=== PATIENT | female | born 1990 | race Caucasian/White ===

== ENCOUNTER 2017-09-25 19:28 | Emergency (ER) | payer MEDICAID ==
[2017-09-25] MEDS ORDERED: ONDANSETRON HCL IV 4 MG/2 ML VIAL IVP ONE (20:03)
[2017-09-25] MEDS ORDERED: ACETAMINOPHEN 1,000 MG/100 ML BTL IVPB ONE (20:03)
--- NOTE | 2017-09-25 20:09 | Emergency Department Record ---
History of Present Illness - General Chief Complaint: Headache Migraine Stated Complaint: HEADACHE Time Seen by Provider: 09/25/17 20:02 Source: Patient Mode of Arrival: Ambulatory Limitations: No limitations - History of Present Illness Initial Comments: 27 yo female presents to ED for evaluation of headache and congestion symptoms for the past several days. Patient reports fever of 100 at home 3 days ago, denies neck stiffness symptoms. Patient reports that she is 11 weeks with a history of IDDM, denies cough symptoms. Patient reports that she was seen at [facility] last night for her symptoms and discharged without improvement in her symptoms. Patient denies abdominal pain, nausea, or vaginal bleeding symptoms. MD Complaint: Headache Onset/Timin -: Days(s) Onset Description: Awoke with symptoms Location: Frontal, Retro-orbital, Temporal Severity scale (1-10): 7 Quality: Throbbing Consistency: Constant Improves With: Nothing Worsens With: Other Other Symptoms: Other Treatments Prior to Arrival: Acetaminophen - Related Data Home Medications Medication Instructions Recorded Confirmed Last Taken Insulin Glargine,Hum.rec.anlog 30 unit SQ QPM 09/25/17 09/25/17 Unknown [Lantus] Insulin Glargine,Hum.rec.anlog 35 unit SQ QAM 09/25/17 09/25/17 Unknown [Lantus] Ondansetron [Zofran Odt] 4 mg PO Q8H PRN 09/25/17 09/25/17 Unknown Pnv,Calcium 72/Iron/Folic Acid 1 tab PO DAILY 09/25/17 09/25/17 Unknown [Pnv Plus Multivit Tab] Ranitidine HCl [Zantac] 150 mg PO BID 09/25/17 09/25/17 Unknown Allergies Allergy/AdvReac Type Severity Reaction Status Date / Time ibuprofen [From Motrin] Allergy decreased Verified 02/27/14 22:12 kidney funtion insulin detemir Allergy HIVES Verified 09/25/17 19:44 [From Levemir U-100 Insulin] metoclopramide HCl Allergy aggitation Verified 02/27/14 22:12 [From Reglan] morphine Allergy ITCHING Verified 02/27/14 22:12 Travel Screening - Travel/Exposure Within Last 30 Days Have you traveled within the last 30 days?: No - Travel Symptoms Symptom Screening: None Review of Systems Constitutional: Reports: Fever. Denies: Chills, Malaise, Night sweats Eyes: Denies: Eye discharge, Eye pain ENT: Reports: Congestion. Denies: Ear pain, Epistaxis Respiratory: Denies: Cough, Dyspnea Cardiovascular: Denies: Chest pain, Dyspnea on exertion Endocrine: Denies: Fatigue, Heat or cold intolerance Gastrointestinal: Denies: Abdominal pain, Vomiting Genitourinary: Denies: Incontinence, Retention Musculoskeletal: Denies: Arthralgia, Back pain, Gout, Joint swelling Skin: Denies: Bruising, Change in color Neurological: Reports: Headache. Denies: Abnormal gait, Confusion Psychiatric: Denies: Anxiety Hematological/Lymphatic: Denies: Anemia, Blood Clots Past Medical History - SOCIAL HISTORY Smoking Status: Current every day smoker - RESPIRATORY Hx Respiratory Disorders: No - CARDIOVASCULAR Hx Cardio Disorders: No - NEURO Hx Neuro Disorders: No - GI Hx GI Disorders: Yes Hx Reflux: Yes - Hx Genitourinary Disorders: No - ENDOCRINE Hx Endocrine Disorders: Yes Hx Diabetes: Yes - MUSCULOSKELETAL Hx Musculoskeletal Disorders: No - PSYCH Hx Psych Problems: Yes Comment:: PTSD - HEMATOLOGY/ONCOLOGY Hx Hematology/Oncology Disorders: No Family Medical History Any Significant Family History?: Yes Hx Diabetes: Grandparents Hx Heart Disease: Father *Heart Comment: enlarged heart Physical Exam - General General Appearance: Alert, Oriented x3, Cooperative, Mild distress Limitations: No limitations - Head Head exam: Atraumatic, Normocephalic, Normal inspection Head exam detail: negative: Abrasion, Contusion, Iniguez's sign, General tenderness, Hematoma, Laceration - Eye Eye exam: Normal appearance. negative: Conjunctival injection, Periorbital swelling, Periorbital tenderness, Scleral icterus - ENT Ear exam: negative: Auricular hematoma, Auricular trauma Nasal Exam: negative: Active bleeding, Discharge, Dried blood, Foreign body Mouth exam: negative: Drooling, Laceration, Muffled voice, Tongue elevation - Neck Neck exam: Normal inspection. negative: Meningismus, Tenderness - Respiratory Respiratory exam: Normal lung sounds bilaterally. negative: Rales, Respiratory distress, Rhonchi, Stridor - Cardiovascular Cardiovascular Exam: Regular rate, Normal rhythm, Normal heart sounds - GI/Abdominal GI/Abdominal exam: Soft. negative: Rebound, Rigid, Tenderness - Rectal Rectal exam: Deferred - exam: Deferred - Extremities Extremities exam: Normal inspection. negative: Calf tenderness, Pedal edema, Tenderness - Back Back exam: Denies: CVA tenderness (R), CVA tenderness (L) - Neurological Neurological exam: Alert, Normal gait, Oriented X3 - Psychiatric Psychiatric exam: Normal affect, Normal mood - Skin Skin exam: Normal color. negative: Abrasion Type of lesion: negative: abrasion Course Vital Signs 09/25/17 19:42 Temperature 98.3 F Pulse Rate [ 93 H Pulse Ox Probe] Respiratory 20 Rate Blood Pressure 111/74 [Left Arm] Pulse Ox 98 - Reevaluation(s) Reevaluation #1: 09/25/17 20:45 Labs reviewed and are grossly unremarkable for an acute process. Reevaluation #2: 09/25/17 21:26 Patient reassessed and reports no improvement in her symptoms. Discussed with the patient her allergy to Reglan, reports lip swelling/hives, risk outweighs the benefits in this case. Toradol in contraindicated, and opiates may be unsafe in . Patient reports similar reactions to phenergan and compazine on further discussion. I discussed that if her symptoms are unchanged , transfer to [facility] where her high-risk OB and anesthesia are available should LP be indicated based on her symptoms. I explained the benefit of possible LP and the availability of these consultants as these consultants are not available at [facility] vs. the risks of failure to diagnose meningitis or other acute etiology of her headache symptoms, patient continues to decline transfer. Patient is alert, oriented, and has the capacity to make rational decisions, and has no meningeal signs on examination. Patient continues to decline transfer after review of these risks and benefits. Patient reports that she would like to go home at this time. Medical Decision Making - Lab Data Result diagrams: 09/25/17 20:20 09/25/17 20:20 Disposition Disposition: Other Clinical Impression: URI (upper respiratory infection) Qualifiers: URI type: unspecified URI Qualified Code(s): J06.9 - Acute upper respiratory infection, unspecified Headache Qualifiers: Headache type: unspecified Headache chronicity pattern: acute headache Intractability: intractable Qualified Code(s): R51 - Headache Disposition: Against Medical Advice Condition: (2) Stable Instructions: Acute Headache (ED) Additional Instructions: Return to ED if your symptoms worsen or if you have any concerns. Follow-up with your family doctor/OB in 1-3 days as directed. Forms: Patient Portal Access Time of Disposition: 21:32 Quality - Quality Measures Quality Measures: N/A - Blood Pressure Screening Does Patient Have Any of the Following: No Blood Pressure Classification: Pre-Hypertensive BP Reading Systolic Measurement: 123 Diastolic Measurement: 75 Screening for High Blood Pressure: < Pre-Hypertensive BP, F/U Documented > [ G8950] Pre-Hypertensive Follow-up Interventions: Referral to alternative/primary care provider.
[2017-09-25] MEDS ORDERED: 0.9 % SODIUM CHLORIDE 1000ML 1,000 ML IV SCH (20:15)
[2017-09-25 20:21] LABS: INFLUENZA A NEGATIVE (NEGATIVE); INFLUENZA B NEGATIVE (NEGATIVE)
[2017-09-25 20:26] LABS: BASO % 0.2 % (0-6); GRAN % 73.2 % (47-80); HEMATOCRIT 40.2 % (35.0-47.0); HEMOGLOBIN 13.5 gm/dl (11.6-16.0); LYMPH % 18.5 % (16-45); MEAN CELL VOLUME 88.5 fl (81-97); MEAN CORPUSCULAR HEMOGLOBIN 29.7 pg (27-33); MEAN CORPUSCULAR HGB CONC 33.6 g/dl (32-36); MEAN PLATELET VOLUME 9.2 fl (7.4-10.4); MONO % 7.1 % (0-9); PLATELET COUNT 288 K/uL (130-400); RED BLOOD COUNT 4.54 M/uL (3.80-5.40); RED CELL DISTRIBUTION WIDTH 13.4 % (11.5-14.5); WHITE BLOOD COUNT W/O DIFF 10.5 K/uL (4.2-12.2)
[2017-09-25 20:38] LABS: BLOOD UREA NITROGEN 13 mg/dL (6-20); CREATININE 0.5 mg/dL (0.5-0.9); EST GLOMERULAR FILTRATION RATE > 60 mL/min
[2017-09-25 20:39] LABS: TOTAL PROTEIN 6.8 g/dL (6.6-8.7)
[2017-09-25 20:41] LABS: GLUCOSE,RANDOM 118 mg/dL (74-109)
[2017-09-25 20:44] LABS: ALB/GLOB RATIO 1.3 (1.1-1.8); ALBUMIN 3.8 g/dL (4.0-5.0); ALKALINE PHOSPHATASE 51 U/L (35-104); ALT/SGPT 13 U/L (<33); AST/SGOT 13 U/L (10.0-35.0)
== END 2017-09-25 21:43 | disposition left against medical advice (07) ==
LOC: ER 19:28
DX: O98.511 Other viral diseases complicating pregnancy, first trimester (principal); O99.331 Smoking (tobacco) complicating pregnancy, first trimester; J06.9 Acute upper respiratory infection, unspecified; R51 Headache; E11.9 Type 2 diabetes mellitus without complications; Z79.4 Long term (current) use of insulin; Z3A.11 11 weeks gestation of pregnancy
CPT/HCPCS: 99284 ×2; 96365; 96375; 85025; 80053; 87400; J2405; J7030

== ENCOUNTER 2018-11-24 19:01 | Emergency (ER) | payer MEDICAID ==
--- NOTE | 2018-11-24 19:13 | Emergency Department Record ---
History of Present Illness - General Chief complaint: Dental Stated complaint: DENTAL PAIN Time Seen by Provider: 11/24/18 19:03 Source: Patient Mode of Arrival: Ambulatory Limitations: No limitations - History of Present Illness Initial comments: 28 yo female presents with dental pain after extraction. She had an infected tooth that was extracted a week ago. She is still having pain at the extraction site. No fevers or chills. No choking, trouble swallowing, or voice changes. No facial swelling. No neck pain or swelling. No visible external swelling. She is on day 5 of 7 of Clindamycin. She has a dentist in [place]. MD complaint: Tooth pain -: Days(s) Location: Tooth # (17) Severity: Severe Quality: Aching Consistency: Constant Improves with: None Worsens with: Eating Context- Dental: History of dental caries, Other (extraction) - Related Data Home Medications Medication Instructions Recorded Confirmed Last Taken Clindamycin HCl 150 mg PO QID 11/24/18 11/24/18 11/24/18 Insulin Glargine,Hum.rec.anlog 30 unit SQ BID 11/24/18 11/24/18 11/24/18 [Basaglar Kwikpen U-100] Insulin Lispro [Admelog] 30 unit SQ TID 11/24/18 11/24/18 11/24/18 Previous Rx's Medication Instructions Recorded Ondansetron [Zofran Odt] 4 mg PO Q8H #20 tab.rapdis 11/24/18 Allergies Allergy/AdvReac Type Severity Reaction Status Date / Time ibuprofen [From Motrin] Allergy decreased Verified 02/27/14 22:12 kidney funtion insulin detemir Allergy HIVES Verified 09/25/17 19:44 [From Levemir U-100 Insulin] metoclopramide HCl Allergy aggitation Verified 02/27/14 22:12 [From Reglan] morphine Allergy ITCHING Verified 02/27/14 22:12 metformin AdvReac DIARRHEA Verified 11/24/18 19:15 Review of Systems Constitutional: Denies: Chills, Fever, Malaise, Weakness Eyes: Denies: Eye discharge, Eye pain ENT: Reports: As per HPI, Dental pain. Denies: Congestion, Ear pain, Epistaxis , Throat pain Respiratory: Denies: Cough, Dyspnea Cardiovascular: Denies: Chest pain, Palpitations, Syncope Endocrine: Denies: Fatigue, Polydipsia, Polyuria Gastrointestinal: Denies: Abdominal pain, Diarrhea, Nausea, Vomiting Genitourinary: Denies: Dysuria, Urgency Musculoskeletal: Denies: Arthralgia, Back pain, Joint swelling, Myalgia, Neck pain Skin: Denies: Bruising, Change in color, Rash Neurological: Denies: Headache Psychiatric: Denies: Anxiety Hematological/Lymphatic: Denies: Easy bleeding, Easy bruising Past Medical History - SOCIAL HISTORY Smoking Status: Current every day smoker - RESPIRATORY Hx Respiratory Disorders: No - CARDIOVASCULAR Hx Cardio Disorders: No - NEURO Hx Neuro Disorders: No - GI Hx GI Disorders: No - Hx Genitourinary Disorders: No - ENDOCRINE Hx Endocrine Disorders: Yes Hx Diabetes: Yes - MUSCULOSKELETAL Hx Musculoskeletal Disorders: No - PSYCH Hx Psych Problems: No - HEMATOLOGY/ONCOLOGY Hx Hematology/Oncology Disorders: No Family Medical History Hx Diabetes: Grandparents Hx Heart Disease: Father *Heart Comment: enlarged heart Physical Exam - General General Appearance: Alert, Oriented x3, Cooperative, No acute distress Limitations: No limitations - Head Head exam: Normocephalic, Normal inspection Head exam detail: Other (No facial swelling) - Eye Eye exam: Normal appearance, PERRL. negative: Conjunctival injection, Periorbital swelling, Scleral icterus - ENT ENT exam: Normal exam, Normal external ear exam, TM's normal bilaterally ( normal left TM) Ear exam: Normal external inspection Nasal Exam: Normal inspection Mouth exam: Normal external inspection Teeth exam: Dental tenderness # (17 extraction site), Other (The site appears clean, minimal gum erythema but NO swelling, No pus, no overt signs of infection ). negative: Gingival enlargement Throat exam: Normal inspection - Neck Neck exam: Normal inspection (no swelling, normal symmetric appearance), Full ROM, Other (very soft and supple). negative: Lymphadenopathy, Meningismus, Tenderness, Thyromegaly - Respiratory Respiratory exam: Normal lung sounds bilaterally. negative: Respiratory distress, Rhonchi, Stridor, Wheezes - Cardiovascular Cardiovascular Exam: Regular rate, Normal rhythm, Normal heart sounds - Rectal Rectal exam: Deferred - Neurological Neurological exam: Alert, CN II-XII intact, Oriented X3 - Psychiatric Psychiatric exam: Normal affect, Normal mood. negative: Agitated, Anxious - Skin Skin exam: Dry, Intact, Normal color, Warm Course - Reevaluation(s) Reevaluation #1: The extraction site appears to be healing. There is very mild erythema but overt signs of swelling, abscess, pus, or spreading infection We discussed symptomatic care, reasons to return or be seen if worse an any point until follow up next week with her dentist 11/24/18 19:15 Disposition Disposition: Discharge Clinical Impression: Status post tooth extraction Disposition: Home, Self-Care Condition: (1) Good Instructions: Toothache (ED) Additional Instructions: Call your dentist for the next available follow up appointment Return to the ER for a recheck if worse, any new concerns or questions Take the prescriptions provided as directed Prescriptions: Ondansetron [Zofran Odt] 4 mg PO Q8H #20 tab.rapdis Forms: Patient Portal Access Time of Disposition: 19:18 Quality - Quality Measures Quality Measures: N/A - Blood Pressure Screening Does Patient Have Any of the Following: Active Dx of HTN Blood Pressure Classification: Pre-Hypertensive BP Reading Systolic Measurement: 132 Diastolic Measurement: 76 Screening for High Blood Pressure: Patient Exclusion, Hx of HTN [G9744]
== END 2018-11-24 19:29 | disposition home or self-care (01) ==
LOC: ER 19:01
DX: K08.409 Partial loss of teeth, unspecified cause, unspecified class (principal); I10 Essential (primary) hypertension; F17.210 Nicotine dependence, cigarettes, uncomplicated
CPT/HCPCS: 99282

== ENCOUNTER 2018-12-14 19:38 | Emergency (ER) | payer MEDICAID ==
--- NOTE | 2018-12-14 19:53 | Emergency Department Record ---
History of Present Illness - General Chief complaint: Pain Stated complaint: PAIN IN HANDS AND FEET Time Seen by Provider: 12/14/18 19:50 Source: Patient, Family Mode of Arrival: Ambulatory Limitations: No limitations - History of Present Illness Initial comments: 28 yo female presents with worsening chronic pain in her hands and her feet. She is a diabetic. She has neuropathy. 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 She tried Neurontin but she had too many side effects. She has fairly symmetric pain of the hands and feet. No rash, swelling, redness, paleness. At times she has cramps of her hands and her feet that come in waves. No cough, shortness of breath, chest pain, fever, edema. MD Complaint: Extremity pain -: Month(s) Location: Bilateral, Foot, Hand -: Yes Myalgia Radiation: Distal Quality: Aching Consistency: Constant Improves with: Nothing Worsens with: Weight bearing Associated Symptoms: Denies other symptoms - Related Data Home Medications Medication Instructions Recorded Confirmed Last Taken Insulin Glargine,Hum.rec.anlog 35 unit SQ QPM 12/14/18 12/14/18 Unknown [Basaglar Kwikpen U-100] Allergies Allergy/AdvReac Type Severity Reaction Status Date / Time ibuprofen [From Motrin] Allergy decreased Verified 02/27/14 22:12 kidney funtion insulin detemir Allergy HIVES Verified 09/25/17 19:44 [From Levemir U-100 Insulin] metoclopramide HCl Allergy aggitation Verified 02/27/14 22:12 [From Reglan] morphine Allergy ITCHING Verified 02/27/14 22:12 metformin AdvReac DIARRHEA Verified 11/24/18 19:15 Review of Systems Constitutional: Denies: Chills, Fever, Malaise, Night sweats, Weakness Eyes: Denies: Eye discharge, Eye pain, Photophobia, Vision change ENT: Denies: Congestion, Dental pain, Ear pain, Throat pain Respiratory: Denies: Cough, Dyspnea, Hemoptysis, Stridor, Wheezes Cardiovascular: Denies: Chest pain, Edema, Palpitations, Syncope Endocrine: Denies: Fatigue, Polydipsia, Polyuria Gastrointestinal: Denies: Abdominal pain, Diarrhea, Nausea, Vomiting Genitourinary: Denies: Dysuria, Hematuria Musculoskeletal: Denies: Arthralgia, Back pain, Gout, Joint swelling, Myalgia, Neck pain Skin: Denies: Bruising, Change in color, Lesions, Rash Neurological: Reports: As per HPI, Tingling. Denies: Confusion, Headache Psychiatric: Denies: Anxiety Hematological/Lymphatic: Denies: Blood Clots, Easy bleeding, Easy bruising, Swollen glands Past Medical History - SOCIAL HISTORY Smoking Status: Current every day smoker - RESPIRATORY Hx Respiratory Disorders: No - CARDIOVASCULAR Hx Cardio Disorders: No - NEURO Hx Neuro Disorders: No - GI Hx GI Disorders: No - Hx Genitourinary Disorders: No - ENDOCRINE Hx Endocrine Disorders: Yes Hx Diabetes: Yes - MUSCULOSKELETAL Hx Musculoskeletal Disorders: No - PSYCH Hx Psych Problems: No - HEMATOLOGY/ONCOLOGY Hx Hematology/Oncology Disorders: No Family Medical History Hx Diabetes: Grandparents Hx Heart Disease: Father *Heart Comment: enlarged heart Physical Exam - General General Appearance: Alert, Oriented x3, Cooperative, No acute distress Limitations: No limitations - Head Head exam: Atraumatic, Normocephalic, Normal inspection Head exam detail: negative: Abrasion, Contusion - Eye Eye exam: Normal appearance, PERRL. negative: Conjunctival injection, Scleral icterus - ENT ENT exam: Normal exam, Mucous membranes moist, Normal orophraynx Ear exam: Normal external inspection Nasal Exam: Normal inspection Mouth exam: Normal external inspection Teeth exam: Normal inspection Throat exam: Normal inspection - Neck Neck exam: Normal inspection. negative: Lymphadenopathy, Meningismus, Tenderness, Thyromegaly - Respiratory Respiratory exam: Normal lung sounds bilaterally - Cardiovascular Cardiovascular Exam: Regular rate, Normal rhythm, Normal heart sounds Peripheral Pulses: 2+: Radial (R), Radial (L), Dorsalis Pedis (R), Dorsalis Pedis (L) - Rectal Rectal exam: Deferred - exam: Deferred - Extremities Extremities exam: Normal inspection, Full ROM, Other (normal inspection of the hands and feet, no redness, no swelling, normal texture to the skin). negative : Calf tenderness, Joint swelling, Normal capillary refill, Pedal edema, Tenderness - Back Back exam: Denies: Normal inspection, Tenderness - Neurological Neurological exam: Alert, CN II-XII intact, Normal gait, Oriented X3. negative : Abnormal gait, Altered, Motor sensory deficit - Psychiatric Psychiatric exam: Anxious (tearful due to the carpal pedal spasm), Normal affect , Normal mood - Skin Skin exam: Dry, Intact, Normal color, Warm. negative: Abrasion, Cyanosis, Diaphoretic, Erythema, Mottled, Rash, Vesicles Course Vital Signs 12/14/18 19:43 Temperature 98.0 F Pulse Rate [ 105 H Pulse Ox Probe] Respiratory 22 Rate Blood Pressure 118/79 [Left Arm] Pulse Ox 96 - Reevaluation(s) Reevaluation #1: The CBC was reviewed No acute process The CMP was reviewed. No acute changes The glucose is 138 The CRP is 2.6 The Magnesium is 1.5 12/14/18 20:47 ESR 34 The results where discussed with the patient We discussed the elevated CRP and ESR I encouraged her to call her PCP for possible work up of other causes of neuropathy than diabetes There are no signs of infection. She did heal from a dental infection 3 weeks ago and this has been asymptomatic. She has been having the neuropathy for about 1.5 years 12/14/18 22:12 On recheck the patient continues to have periods of carpel pedal spasm Continue with supportive treatment of her symptoms. 12/14/18 22:19 Medical Decision Making - Lab Data Result diagrams: 12/14/18 20:10 12/14/18 20:10 Disposition Disposition: Discharge Clinical Impression: Peripheral neuropathy Qualifiers: Peripheral neuropathy type: polyneuropathy, unspecified Qualified Code(s): G62.9 - Polyneuropathy, unspecified Disposition: Home, Self-Care Condition: (1) Good Instructions: Diabetic Peripheral Neuropathy (ED) Additional Instructions: Call your doctor for the next available follow up appointment You family doctor may need to do other tests for causes of peripheral neuropathy Return to the ER for a recheck if worse, any new concerns or questions Take the prescriptions provided as directed Review this ER visit and the tests performed with your family doctor Forms: Patient Portal Access Time of Disposition: 00:01 Quality - Quality Measures Quality Measures: N/A - Blood Pressure Screening Does Patient Have Any of the Following: No Blood Pressure Classification: Pre-Hypertensive BP Reading Systolic Measurement: 131 Diastolic Measurement: 62 Screening for High Blood Pressure: < Pre-Hypertensive BP, F/U Documented > [ G8950] Pre-Hypertensive Follow-up Interventions: Referral to alternative/primary care provider.
[2018-12-14] MEDS ORDERED: DIAZEPAM 5 MG TABLET PO ONE (20:06)
[2018-12-14 20:18] LABS: BASO % 0.3 % (0-6); EOS % 2.1 % (0-6); GRAN % 57.4 % (47-80); HEMATOCRIT 43.7 % (35.0-47.0); HEMOGLOBIN 13.8 gm/dl (11.6-16.0); MEAN CELL VOLUME 86.2 fl (81-97); MEAN CORPUSCULAR HEMOGLOBIN 27.2 pg (27-33); MEAN CORPUSCULAR HGB CONC 31.6 g/dl (32-36); MEAN PLATELET VOLUME 9.6 fl (7.4-10.4); MONO % 6.2 % (0-9); PLATELET COUNT 360 K/uL (130-400); RED BLOOD COUNT 5.07 M/uL (3.80-5.40); RED CELL DISTRIBUTION WIDTH 15.3 % (11.5-14.5); WHITE BLOOD COUNT W/O DIFF 9.2 K/uL (4.2-12.2)
[2018-12-14 20:31] LABS: BLOOD UREA NITROGEN 12 mg/dL (6-20); CREATININE 0.6 mg/dL (0.5-0.9); EST GLOMERULAR FILTRATION RATE > 60 mL/min
[2018-12-14 20:32] LABS: TOTAL PROTEIN 7.1 g/dL (6.6-8.7)
[2018-12-14 20:34] LABS: GLUCOSE,RANDOM 138 mg/dL (74-109)
[2018-12-14 20:36] LABS: ALT/SGPT 14 U/L (<33); AST/SGOT 15 U/L (10.0-35.0)
[2018-12-14 20:37] LABS: ALB/GLOB RATIO 1.3 (1.1-1.8); ALKALINE PHOSPHATASE 96 U/L (35-104); C-REACTIVE PROTEIN 2.63 mg/dL (<0.5)
[2018-12-14] MEDS ORDERED: MAGNESIUM OXIDE 400 MG TABLET PO ONE (20:47)
[2018-12-14] MEDS ORDERED: MORPHINE SULFATE 10 MG/ML VIAL IVP ONE (20:59)
[2018-12-14] MEDS ORDERED: 0.9 % SODIUM CHLORIDE 1,000 ML BAG IV ONE (20:59)
[2018-12-14 21:00] LABS: ERYTHROCYTE SEDIMENTATION RATE 34 mm/hr (0-20)
[2018-12-14] MEDS ORDERED: HYDROMORPHONE HCL 2 MG/ML VIAL IVP ONE ×2 (21:00→21:52)
[2018-12-14] MEDS ORDERED: MAGNESIUM SULFATE 16 MEQ in 0.9 % SODIUM CHLORIDE 100ML 100 ML IV ONE (21:52)
[2018-12-14] MEDS ORDERED: ORPHENADRINE CITRATE 60MG/2ML VIAL IM ONE (23:59)
[2018-12-14] MEDS ORDERED: HYDROCODONE/APAP 5/325MG TABLET PO ONE (23:59)
== END 2018-12-15 00:27 | disposition home or self-care (01) ==
LOC: ER 19:38
DX: E11.42 Type 2 diabetes mellitus with diabetic polyneuropathy (principal); Z79.4 Long term (current) use of insulin; F17.210 Nicotine dependence, cigarettes, uncomplicated
CPT/HCPCS: 99284 ×2; 96376; 96372; 96365; 96375; 83735; 85025; 85651; 86140; 80053; 84443; J3490; J1170; J2360; J7030

== ENCOUNTER 2019-08-22 19:31 | Emergency (ER) | payer MEDICAID ==
[2019-08-22] MEDS ORDERED: METHYLPREDNISOLONE PF 125MG/VIAL IM ONE (19:46)
[2019-08-22] MEDS ORDERED: KETOROLAC 60 MG/2 ML VIAL IM STA (19:46)
--- NOTE | 2019-08-22 19:52 | Emergency Department Record ---
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 Patient reports that her pain symptoms have not been controlled at home, reports a history of numerous lower lumbar disc bulges "after my daughter was born". Patient reports pain that radiates down the back of the right thigh, denies numbness over the groin region, urinary retention symptoms, or lower extremity weakness symptoms on examination. Patient denies taking anything for pain prior to arrival. MD Complaint: Back pain Onset/Timin -: Hour(s) Similar Symptoms Previously: Yes Place: Home Radiation: Right leg Severity: Severe Quality: Sharp, Stabbing Consistency: Constant Improves With: None Worsens With: Movement Context: Bending Associated Symptoms: Denies other symptoms - Related Data Allergies Allergy/AdvReac Type Severity Reaction Status Date / Time ibuprofen [From Motrin] Allergy decreased Verified 02/27/14 22:12 kidney funtion insulin detemir Allergy HIVES Verified 09/25/17 19:44 [From Levemir U-100 Insulin] metoclopramide HCl Allergy aggitation Verified 02/27/14 22:12 [From Reglan] morphine Allergy ITCHING Verified 02/27/14 22:12 metformin AdvReac DIARRHEA Verified 11/24/18 19:15 Review of Systems Constitutional: Denies: Chills, Fever, Malaise, Night sweats Eyes: Denies: Eye discharge, Eye pain ENT: Denies: Congestion, Ear pain, Epistaxis Respiratory: Denies: Cough, Dyspnea Cardiovascular: Denies: Chest pain, Dyspnea on exertion Endocrine: Denies: Fatigue, Heat or cold intolerance Gastrointestinal: Denies: Abdominal pain, Nausea, Vomiting Genitourinary: Denies: Incontinence, Retention Musculoskeletal: Reports: Back pain. Denies: Arthralgia Skin: Denies: Bruising, Change in color Neurological: Denies: Abnormal gait, Confusion, Headache, Seizure Psychiatric: Denies: Anxiety Hematological/Lymphatic: Denies: Anemia, Blood Clots Past Medical History - SOCIAL HISTORY Smoking Status: Current every day smoker - RESPIRATORY Hx Respiratory Disorders: No - CARDIOVASCULAR Hx Cardio Disorders: No - NEURO Hx Neuro Disorders: No - GI Hx GI Disorders: No - Hx Genitourinary Disorders: No - ENDOCRINE Hx Endocrine Disorders: Yes Hx Diabetes: Yes - MUSCULOSKELETAL Hx Musculoskeletal Disorders: No - PSYCH Hx Psych Problems: No - HEMATOLOGY/ONCOLOGY Hx Hematology/Oncology Disorders: No Family Medical History Hx Diabetes: Grandparents Hx Heart Disease: Father *Heart Comment: enlarged heart Physical Exam - General General Appearance: Alert, Oriented x3, Cooperative, Moderate distress, Anxious (patient is anxious and tearful on examination) Limitations: No limitations - Head Head exam: Atraumatic, Normocephalic, Normal inspection Head exam detail: negative: Abrasion, Contusion, Iniguez's sign, General tenderness, Hematoma, Laceration - Eye Eye exam: Normal appearance. negative: Conjunctival injection, Periorbital swelling, Periorbital tenderness, Scleral icterus - ENT Ear exam: negative: Auricular hematoma, Auricular trauma Nasal Exam: negative: Active bleeding, Discharge, Dried blood, Foreign body Mouth exam: negative: Drooling, Laceration, Muffled voice, Tongue elevation - Neck Neck exam: Normal inspection. negative: Meningismus, Tenderness - Respiratory Respiratory exam: Normal lung sounds bilaterally. negative: Rales, Respiratory distress, Rhonchi, Stridor - Cardiovascular Cardiovascular Exam: Regular rate, Normal rhythm, Normal heart sounds - GI/Abdominal GI/Abdominal exam: Soft. negative: Rebound, Rigid, Tenderness - Rectal Rectal exam: Deferred - exam: Deferred - Extremities Extremities exam: Normal inspection. negative: Pedal edema, Tenderness - Back Back exam: Reports: Paraspinal tenderness (TTP to the SI joints bilaterally with moderate palpation). Denies: CVA tenderness (R), CVA tenderness (L) - Neurological Neurological exam: Alert, Normal gait, Oriented X3 - Psychiatric Psychiatric exam: Normal affect, Normal mood - Skin Skin exam: Normal color. negative: Abrasion Type of lesion: negative: abrasion Course Vital Signs 08/22/19 19:39 Temperature 97.7 F Pulse Rate [ 116 H Pulse Ox Probe] Respiratory 24 Rate Blood Pressure 101/92 [Left Arm] Pulse Ox 95 - Reevaluation(s) Reevaluation #1: 08/22/19 19:47 MAPS was reviewed: Patient receives Gabapentin monthly for her ongoing bulging discs Ativan prescribed 06/26/19 OD Risk Score 460 Reevaluation #2: 08/22/19 20:07 Patient was given Toradol and Solumedrol here in the ED. Previous laboratory studies were reviewed 12/14/18, BUN 12/Creatinine 0.6. Patient was reassured that a single administration of Toradol will not result in renal impairment based on her previous laboratory studies. Patient also reports she has not take Gabapentin in 2.5 weeks as it "causes headaches and doesn't help with my nerve pain". Reevaluation #3: 08/22/19 20:52 Patient was reassessed, patient is now lying supine, continues to be hyperventilating clinially and reports "I need something to help me rest and sleep tonight, someone is watching my child tonight for me". Will administer Valium 10 mg po and reassess. Reevaluation #4: 08/22/19 21:09 Patient's mother has come to the desk stating "my daughter needs a pain medication for her pain symptoms". I explained at length that the patient has a muscle strain to the right lower lumbar region and narcotics are not indicated based on the patient's presentation. I explained that narcotics are indicated in instances of acute trauma or injury, or based on the discretion of the provider. Patient's mother than stated "that's why people are turning to heroin and methamphetamines" and dying" while swearing at staff members and myself at the nursing station. I explained again to the patient's mother that I did not feel narcotic pain medication was indicated for the patient's low back strain symptoms, and that she had received both a IM steroid for inflammation, a strong IM anti- inflammatory for her pain and a muscle relaxer was ordered for her as well as her symptoms had not improved. Patient was noted to be subjectively however mu ch calmer on re-examination prior to ordering Valium 10 mg PO. Patient's mother continued shout "Oh, Great, another hospital that won't help with pain-what's wrong with you doctors?" Patient's mother was given a wheelchair at her request, and left with the patient prior to discharge. Disposition Disposition: Discharge Clinical Impression: Lumbar strain Qualifiers: Encounter type: initial encounter Qualified Code(s): S39.012A - Strain of muscle, fascia and tendon of lower back, initial encounter Disposition: Home, Self-Care Condition: (2) Stable Instructions: Low Back Strain (ED) Additional Instructions: Return to ED if your symptoms worsen or if you have any concerns. Prednisone as directed. Follow-up with your family doctor in 3-5 days as directed. Forms: Patient Portal Access Time of Disposition: 20:09 Quality - Quality Measures Quality Measures: N/A - Blood Pressure Screening Does Patient Have Any of the Following: No Blood Pressure Classification: Hypertensive Reading Systolic Measurement: 101 Diastolic Measurement: 92 Screening for High Blood Pressure: < First Hypertensive BP, F/U Documented > [[id number]] First Hypertensive Follow-up Interventions: Referral to alternative/primary care provider.
[2019-08-22] MEDS ORDERED: DIAZEPAM 5 MG TABLET PO ONE (20:52)
== END 2019-08-22 21:22 | disposition home or self-care (01) ==
LOC: ER 19:31
DX: S39.012A Strain of muscle, fascia and tendon of lower back, initial encounter (principal); F17.210 Nicotine dependence, cigarettes, uncomplicated; X50.1XXA Overexertion from prolonged static or awkward postures, initial encounter; Y92.009 Unspecified place in unspecified non-institutional (private) residence as the place of occurrence of the external cause
CPT/HCPCS: 96372; 99284; J1885; J2930